=== PATIENT | male | born 1995 | race Caucasian/White ===

== ENCOUNTER 2018-08-20 13:14 | Emergency (ER) | payer SELFPAY ==
--- NOTE | 2018-08-20 13:38 | ER Document Report ---
ED General - General Chief Complaint: Overdose Stated Complaint: POSSIBLE OVERDOSE Time Seen by Provider: 08/20/18 13:35 Primary Care Provider: [facility] [Provider Group] - Follow up as needed [facility] [Provider Group] - Follow up as needed - HPI Notes: Patient is a 23-year-old male that presents to the emergency department for chief complaint of heroin overdose. Patient was dropped off at the front door by a friend's unresponsive with no history. Patient woke after receiving IV Narcan and states that he is a heroin addict and snorted heroin today. He denies any desire to quit using heroin. He denies any coingestion including alcohol. He denies any suicidal ideation or intent for self-harm. Currently he has no complaints. Past Medical History: Negative Past Surgical History: Negative Social History: Daily tobacco. Daily heroin. Denies alcohol use Family History: Reviewed and noncontributory for presenting illness Allergies: Reviewed, see documented allergy list. REVIEW OF SYSTEMS: CONSTITUTIONAL : No fever No chills No diaphoresis No recent illness EENT: No vision changes No congestion No sore throat CARDIOVASCULAR: No chest pain No palpitations RESPIRATORY: No shortness of breath No cough No difficulty breathing GASTROINTESTINAL: No abdominal pain No nausea No vomiting No diarrhea GENITOURINARY: No dysuria No hematuria No difficulty urinating MUSCULOSKELETAL: No back pain No leg pain No arm pain SKIN: No rashes No lesions LYMPHATIC: No swollen, enlarged glands. NEUROLOGICAL: No lightheadedness No headache No weakness No paresthesias PSYCHIATRIC: No anxiety No depression PHYSICAL EXAMINATION: Vital signs reviewed, nursing noted reviewed. GENERAL: Somnolent, well-nourished and in no acute distress. HEAD: Atraumatic, normocephalic. EYES: Eyes appear normal, extraocular movements intact, sclera anicteric, conjunctiva are normal. ENT: nares patent, oropharynx clear without exudates. Moist mucous membranes. NECK: Normal range of motion, supple without lymphadenopathy LUNGS: Breath sounds clear to auscultation bilaterally and equal. No wheezes rales or rhonchi. HEART: Regular rate and rhythm without murmurs ABDOMEN: Soft, nontender, normoactive bowel sounds. No rebound, guarding, or rigidity. No masses appreciated. EXTREMITIES: Nontender, good range of motion, no pitting or edema. NEUROLOGICAL: No focal neurological deficits. Moves all extremities spontaneously Motor and sensory grossly intact on exam. PSYCH: Normal mood, normal affect. SKIN: Warm, Dry, normal turgor, no rashes or lesions noted on exposed skin Past Medical History - Social History Smoking Status: Current Every Day Smoker Family History: Reviewed & Not Pertinent Course - Re-evaluation Re-evalutation: 08/20/18 13:37 Vitals reviewed. Nursing notes reviewed. Patient presented unresponsive and apneic. [id number] ventilation was initiated and patient was given 4 mg IV Narcan. After receiving Narcan he had complete resolution of his unresponsive state. He is awake and endorsing heroin overdose. His physical exam is unremarkable. He was placed on telemetry monitoring. He will be monitored for 3 hours for further unresponsive state after receiving Narcan. Patient in agreement with plan of care and is currently stable. 08/20/18 16:35 Patient reevaluated and has been mentating appropriately. He is oxygenating well on room air. He has not had any recurrence of unresponsive state. He will be given port and encouraged to follow for outpatient services for his substance abuse. Patient will be discharged with a sober caregiver who will monitor him for the next few hours. He was counseled on the rare occurrence of becoming unresponsive again after Narcan. He was counseled on his substance abuse and stopping heroin use. Patient in agreement with plan of care. He is stable at discharge. He will return for new or worsening symptoms. Discharge - Discharge Clinical Impression: Heroin overdose Qualifiers: Encounter type: initial encounter Injury intent: accidental or unintentional Qualified Code(s): T40.1X1A - Poisoning by heroin, accidental (unintentional), initial encounter Condition: Stable Disposition: HOME, SELF-CARE Instructions: Instructions for Home Care Following a Drug Overdose ([facility]), Overdose ([facility]) Additional Instructions: Please return to the emergency department if you have any worsening, or concern of your symptoms. Please return to the emergency department if you develop chest pain, difficulty breathing, severe abdominal pain, or ongoing vomiting. Please follow-up with your primary care physician in 2-3 days and any other recommended physicians. If prescribed, take all medications as directed. If you have any questions or concerns do not hesitate to return the emergency department for evaluation. You overdosed on heroin today. Stop using heroin. Referrals: [facility] [Provider Group] - Follow up as needed [facility] [Provider Group] - Follow up as needed
[2018-08-20] MEDS ORDERED: NALOXONE HCL INJ 2 MG/2 ML DISP.SYRIN IV ONE (16:31)
[2018-08-20 16:57] VITALS: BP 109/55
== END 2018-08-20 16:40 | disposition home or self-care (01) ==
LOC: ER 13:14
DX: T40.1X1A Poisoning by heroin, accidental (unintentional), initial encounter (principal); X58.XXXA Exposure to other specified factors, initial encounter
CPT/HCPCS: 99284; 96374; J2310